=== PATIENT | female | born 1990 | race Caucasian/White ===

== ENCOUNTER 2024-01-19 19:00 | Emergency (ER) | payer BC, OTHER ==
[2024-01-19] MEDS: Ibuprofen 600 MG Tab PO ONE (19:38)
== END 2024-01-19 20:07 | disposition home or self-care (01) ==
LOC: JD.ED 19:00
DX: S92.301A Fracture of unspecified metatarsal bone(s), right foot, initial encounter for closed fracture (principal); W20.8XXA Other cause of strike by thrown, projected or falling object, initial encounter
CPT/HCPCS: 73630; 99283; A9270; 99282

== ENCOUNTER 2024-07-15 23:31 | Emergency (ER) | payer BC ==
[2024-07-16] MEDS ORDERED: Lidocaine 1% 5 ML VIAL INJECT ONE (00:21)
[2024-07-16] MEDS: Lidocaine 1% 10 ML MDV ONE (00:51)
[2024-07-16] MEDS: Lidocaine 1% 10 ML MDV INJECT ONE (00:52)
== END 2024-07-16 01:06 | disposition home or self-care (01) ==
LOC: JD.ED 23:31
DX: N75.0 Cyst of Bartholin's gland (principal)
CPT/HCPCS: 56420; 99283-25; J3490